=== PATIENT | male | born 1970 | race Two or more races ===

== ENCOUNTER 2024-06-21 19:15 | Inpatient (IN) | payer MEDICARE, OTHER ==
[~2024-06-21] VITALS: Ht 177.8 cm; Wt 83.9 kg
[2024-06-21 20:00] VITALS: BP 124/67; PULSE 103; RESP 20; TEMP 36.7516
[2024-06-21] MEDS ORDERED: ONDANSETRON HCL 4MG/2ML INJ IV PRN (20:45)
[2024-06-21] MEDS ORDERED: NALOXONE HCL 0.4MG/ML 1ML VIAL IV PRN (20:45)
[2024-06-21] MEDS ORDERED: DEXTROSE 50% WATER 50ML SYRINGE IV PRN (21:00)
[2024-06-21] MEDS: BLOOD SUGAR DIAGNOSTIC STRIP TEST SCH (21:52)
[2024-06-21 22:05] VITALS: BP 133/70; PULSE 102; RESP 19; TEMP 36.22512; O2SAT 72; O2SAT 95
[2024-06-21] MEDS: HYDROMORPHONE HCL/PF 1MG/ML INJ IV PRN (22:06)
[2024-06-21] MEDS: METOPROLOL TARTRATE 25MG TABLET PO SCH (22:07)
[2024-06-21] MEDS: GUAIFENESIN 600MG ER TABLET PO SCH (22:07)
[2024-06-21] MEDS: METHOCARBAMOL 500MG TABLET PO SCH (22:08)
[2024-06-21] MEDS: INSULIN LISPRO 100 UNITS/ML SUBCUT SCH (22:14)
[2024-06-21] MEDS: AZITHROMYCIN 500 MG TABLET PO SCH (22:56)
[2024-06-21] MEDS: SACUBITRIL/VALSARTAN 24MG/26MG TABLET PO SCH (22:56)
[2024-06-21] MEDS: CEFEPIME 1GM/50ML 50 ML IV SCH (22:57)
[2024-06-21] MEDS: HYDROCODONE/ACETAMINOPHEN 5/325MG TABLET PO PRN (23:12)
[2024-06-21] MEDS: CEFEPIME 2GM/50ML DUPLEX 50 ML IV SCH (23:32)
[2024-06-22] MEDS: GUAIFENESIN 200MG/10ML SUGAR FREE UDC PO PRN (01:22)
[2024-06-22 06:13] LABS: CHLORIDE 103 mEq/L (98-107); POTASSIUM 4.3 mEq/L (3.5-5.1); SODIUM 135 mEq/L (136-145)
[2024-06-22 06:15] LABS: CARBON DIOXIDE 23 mEq/L (21-32)
[2024-06-22 06:16] LABS: CALCIUM 8.3 mg/dL (8.7-10.4)
[2024-06-22 06:21] LABS: CREATININE 1.1 mg/dL (0.6-1.3); GLUCOSE 180 mg/dL (70-105); UREA NITROGEN BLOOD 23 mg/dL (9-23)
[2024-06-22 06:22] LABS: ALANINE AMINOTRANSFERASE 25 IU/L (10-49)
[2024-06-22 06:23] LABS: ALBUMIN 3.5 g/dL (3.2-4.8); ASPARTATE AMINOTRANSFERASE 63 IU/L (<34); BILIRUBIN TOTAL 0.9 mg/dL (0.1-1.0); PREALBUMIN 8.8 mg/dl (10.0-40.0); PROTEIN TOTAL 6.5 g/dL (6.0-8.3)
[2024-06-22 07:08] LABS: HEMATOCRIT. 25.7 % (42.0-52.0); MEAN CORPUSCULAR HEMOGLOBIN 35.6 pg (28.0-32.0); MEAN CORPUSCULAR HGB CONC 34.8 g/dL (31.0-37.0); MEAN CORPUSCULAR VOLUME 102.4 fL (80.0-94.0); RED BLOOD CELL COUNT 2.51 mill/uL (4.7-6.1); RED CELL DISTRIBUTION WIDTH 20.1 % (11.6-14.6)
[2024-06-22 08:00] VITALS: BP 112/62; PULSE 74; RESP 19; TEMP 36.114; O2SAT 96
[2024-06-22 08:16] LABS: DIFFERENTIAL COMMENT 1
[2024-06-22] MEDS ORDERED: CLOPIDOGREL 75MG TABLET PO SCH (09:00)
[2024-06-22] MEDS: SPIRONOLACTONE 25MG TABLET PO SCH (09:51)
[2024-06-22] MEDS: AMLODIPINE 5MG TABLET PO SCH (09:51)
[2024-06-22 10:20] LABS: PLATELET 161 x1000/uL (130-400)
[2024-06-22 10:24] LABS: ANISOCYTOSIS 2+; NUCLEATED RED BLOOD CELLS 11 /100 WBC; PLATELET ESTIMATE NORMAL; TARGET CELLS 1+
[2024-06-22] MEDS: VANCOMYCIN 1.5GM/250ML IV NR (12:00)
[2024-06-22] MEDS: HYDROCODONE/ACETAMINOPHEN 5/325MG TABLET PO PRN (14:05)
[2024-06-22] MEDS: CEFEPIME 2GM/50ML DUPLEX 50 ML IV SCH (16:28)
[2024-06-22 20:00] VITALS: BP 119/53; PULSE 78; RESP 18; TEMP 36.78072; O2SAT 94
[2024-06-22] MEDS ORDERED: VANCOMYCIN 1000MG/250ML IV SCH (23:00)
[2024-06-23 06:37] LABS: CARBON DIOXIDE 25 mEq/L (21-32); CHLORIDE 103 mEq/L (98-107); POTASSIUM 4.4 mEq/L (3.5-5.1); SODIUM 134 mEq/L (136-145)
[2024-06-23 06:38] LABS: CALCIUM 8.4 mg/dL (8.7-10.4)
[2024-06-23 06:42] LABS: IRON 28 ug/dL (65-175)
[2024-06-23 06:43] LABS: ALANINE AMINOTRANSFERASE 30 IU/L (10-49); GLUCOSE 218 mg/dL (70-105); PROTEIN TOTAL 6.4 g/dL (6.0-8.3); UREA NITROGEN BLOOD 18 mg/dL (9-23)
[2024-06-23 06:44] LABS: ALBUMIN 3.5 g/dL (3.2-4.8)
[2024-06-23 06:45] LABS: ASPARTATE AMINOTRANSFERASE 54 IU/L (<34); BILIRUBIN TOTAL 0.7 mg/dL (0.1-1.0); TOTAL IRON BINDING CAPACITY 385 ug/dl (250-425)
[2024-06-23 07:04] LABS: FERRITIN > 1650 ng/mL (22-322)
[2024-06-23 07:05] LABS: FOLIC ACID (FOLATE) SERUM > 20.00 ng/mL (>5.38)
[2024-06-23 07:06] LABS: VITAMIN B12 SERUM 313 pg/mL (211-911)
[2024-06-23 07:52] LABS: HEMATOCRIT. 25.5 % (42.0-52.0); HEMOGLOBIN. 8.9 g/dL (14.0-18.0); MEAN CORPUSCULAR HEMOGLOBIN 34.9 pg (28.0-32.0); MEAN CORPUSCULAR HGB CONC 34.8 g/dL (31.0-37.0); MEAN CORPUSCULAR VOLUME 100.3 fL (80.0-94.0); RED BLOOD CELL COUNT 2.54 mill/uL (4.7-6.1); RED CELL DISTRIBUTION WIDTH 20.7 % (11.6-14.6)
[2024-06-23 07:54] LABS: DIFFERENTIAL COMMENT 1
[2024-06-23 08:00] VITALS: BP 104/64; PULSE 64; TEMP 36.114
[2024-06-23 08:55] VITALS: BP 104/62; PULSE 64; RESP 18; TEMP 36.114; O2SAT 98
[2024-06-23 09:34] LABS: ANISOCYTOSIS 3+; NUCLEATED RED BLOOD CELLS 18 /100 WBC; PLATELET ESTIMATE NORMAL
[2024-06-23 09:35] LABS: PLATELET 177 x1000/uL (130-400); TARGET CELLS FEW
[2024-06-23] MEDS: HYDROMORPHONE HCL/PF 1MG/ML INJ SUBCUT PRN (12:32)
[2024-06-23] MEDS: CYANOCOBALAMIN 1000MCG/ML VIAL IM SCH (14:09)
[2024-06-23] MEDS: FERROUS SULFATE 325MG TABLET PO SCH (14:09)
[2024-06-23 15:44] VITALS: PULSE 64; RESP 16; O2SAT 98
[2024-06-23] MEDS: IPRATROPIUM/ALBUTEROL 0.5-3(2.5)MG/3ML NEB HHN PRN (15:44)
[2024-06-23] MEDS: FUROSEMIDE 40MG/4ML VIAL IVP NR (18:08)
[2024-06-23 20:00] VITALS: BP 132/68; PULSE 88; RESP 18; TEMP 36.6696; O2SAT 98
[2024-06-24 08:00] VITALS: BP 138/80; PULSE 94; RESP 18; TEMP 36.55848; O2SAT 94
[2024-06-24] MEDS: ASCORBIC ACID 500 MG TABLET PO SCH (10:39)
[2024-06-24 19:44] VITALS: BP 113/62; PULSE 90; RESP 20; TEMP 36.89184; O2SAT 99
[2024-06-24 22:03] LABS: HEMATOCRIT. 26.6 % (42.0-52.0); HEMOGLOBIN. 9.4 g/dL (14.0-18.0); MEAN CORPUSCULAR HEMOGLOBIN 34.1 pg (28.0-32.0); MEAN CORPUSCULAR HGB CONC 35.2 g/dL (31.0-37.0); MEAN CORPUSCULAR VOLUME 96.8 fL (80.0-94.0); MEAN PLATELET VOLUME 9.5 fl (7.4-10.4); PLATELET 271 x1000/uL (130-400); RED BLOOD CELL COUNT 2.75 mill/uL (4.7-6.1); RED CELL DISTRIBUTION WIDTH 21.7 % (11.6-14.6); WHITE BLOOD COUNT 10.8 x1000/uL (4.5-11.0)
[2024-06-24 22:12] LABS: DIFFERENTIAL COMMENT 1
[2024-06-24 22:28] LABS: CHLORIDE 105 mEq/L (98-107); POTASSIUM 4.6 mEq/L (3.5-5.1); SODIUM 134 mEq/L (136-145)
[2024-06-24 22:29] LABS: CALCIUM 9.1 mg/dL (8.7-10.4); CARBON DIOXIDE 22 mEq/L (21-32)
[2024-06-24 22:30] LABS: NUCLEATED RED BLOOD CELLS 15 /100 WBC; PLATELET ESTIMATE NORMAL
[2024-06-24 22:32] LABS: ANISOCYTOSIS 2+
[2024-06-24 22:34] LABS: CREATININE 1.1 mg/dL (0.6-1.3); GLUCOSE 162 mg/dL (70-105); UREA NITROGEN BLOOD 20 mg/dL (9-23)
[2024-06-25 00:25] VITALS: PULSE 88; RESP 18; O2SAT 92
[2024-06-25 08:00] VITALS: BP 129/74; PULSE 81; RESP 18; TEMP 36.1; O2SAT 95
[2024-06-25] MEDS: LACTULOSE 20G/30ML UDC PO PRN (13:40)
[2024-06-25] MEDS: DOCUSATE SODIUM 100MG CAPSULE PO PRN (13:41)
[2024-06-25] MEDS: ERGOCALCIFEROL 50000UNITS CAPSULE PO SCH (18:08)
[2024-06-25] MEDS: BENZONATATE 100MG CAPSULE PO SCH (18:08)
[2024-06-25 20:00] VITALS: BP 127/69; PULSE 88; RESP 17; TEMP 36.7; O2SAT 98
[2024-06-26] MEDS: ACETAMINOPHEN 325MG TABLET PO PRN (03:27)
[2024-06-26 08:00] VITALS: BP 144/73; PULSE 91; RESP 18; TEMP 36.2; O2SAT 100
[2024-06-26 18:23] VITALS: PULSE 116; RESP 20; O2SAT 97
[2024-06-26 20:00] VITALS: BP 115/56; PULSE 97; RESP 18; TEMP 37.1; O2SAT 96
[2024-06-27 08:00] VITALS: BP 116/57; PULSE 96; RESP 20; TEMP 36.5; O2SAT 90
[2024-06-27] MEDS: HYDROCODONE/ACETAMINOPHEN 10/325MG TABLET PO PRN (18:25)
[2024-06-27 20:00] VITALS: BP 126/71; PULSE 107; RESP 20; TEMP 36.6; O2SAT 99
[2024-06-28 08:00] VITALS: BP 99/50; PULSE 75; RESP 19; TEMP 36.6; O2SAT 100
[2024-06-28 20:00] VITALS: BP 115/64; PULSE 86; RESP 19; TEMP 36.4; O2SAT 97
[2024-06-29 08:00] VITALS: BP 96/56; PULSE 80; RESP 20; TEMP 36.1; O2SAT 96
[2024-06-29 20:00] VITALS: BP 119/68; PULSE 86; RESP 18; TEMP 36.4; O2SAT 97
[2024-06-30 06:59] VITALS: BP 90/38; PULSE 80; RESP 18; O2SAT 93
[2024-06-30 08:00] VITALS: BP 91/46; PULSE 77; RESP 20; TEMP 36.2; O2SAT 100
[2024-06-30 09:49] LABS: HEMATOCRIT. 28.1 % (42.0-52.0); HEMOGLOBIN. 9.5 g/dL (14.0-18.0); MEAN CORPUSCULAR HEMOGLOBIN 33.4 pg (28.0-32.0); MEAN CORPUSCULAR HGB CONC 33.7 g/dL (31.0-37.0); MEAN CORPUSCULAR VOLUME 99.3 fL (80.0-94.0); MEAN PLATELET VOLUME 8.8 fl (7.4-10.4); PLATELET 362 x1000/uL (130-400); RED BLOOD CELL COUNT 2.83 mill/uL (4.7-6.1); RED CELL DISTRIBUTION WIDTH 23.2 % (11.6-14.6)
[2024-06-30 10:24] LABS: CHLORIDE 105 mEq/L (98-107); POTASSIUM 5.2 mEq/L (3.5-5.1); SODIUM 136 mEq/L (136-145)
[2024-06-30 10:25] LABS: CALCIUM 9.5 mg/dL (8.7-10.4); CARBON DIOXIDE 23 mEq/L (21-32)
[2024-06-30 10:30] LABS: CREATININE 1.2 mg/dL (0.6-1.3); GLUCOSE 153 mg/dL (70-105); UREA NITROGEN BLOOD 23 mg/dL (9-23)
[2024-06-30 10:31] LABS: ALBUMIN 3.8 g/dL (3.2-4.8)
[2024-06-30 10:32] LABS: ALANINE AMINOTRANSFERASE 32 IU/L (10-49); ASPARTATE AMINOTRANSFERASE 33 IU/L (<34); BILIRUBIN TOTAL 0.9 mg/dL (0.1-1.0); PROTEIN TOTAL 7.6 g/dL (6.0-8.3)
[2024-06-30 10:47] LABS: DIFFERENTIAL COMMENT 1
[2024-06-30] MEDS: SODIUM ZIRCONIUM CYCLOSILICATE 10GM/PACKET PO NR (12:35)
[2024-06-30 16:20] LABS: ANISOCYTOSIS 3+; PLATELET ESTIMATE NORMAL
[2024-06-30 16:21] LABS: TARGET CELLS 1+
[2024-06-30 20:00] VITALS: BP 102/58; PULSE 89; RESP 18; TEMP 36.9; O2SAT 99
[2024-06-30] MEDS: METOPROLOL TARTRATE 25MG TABLET PO SCH (21:00)
[2024-07-01 08:00] VITALS: BP 113/65; PULSE 75; RESP 19; TEMP 35.9; O2SAT 96
[2024-07-01] MEDS ORDERED: BENZONATATE 100MG CAPSULE PO PRN (10:00)
[2024-07-01 18:48] LABS: HEMATOCRIT. 24.5 % (42.0-52.0); HEMOGLOBIN. 8.6 g/dL (14.0-18.0); MEAN CORPUSCULAR HGB CONC 35.2 g/dL (31.0-37.0); MEAN CORPUSCULAR VOLUME 96.5 fL (80.0-94.0); MEAN PLATELET VOLUME 8.8 fl (7.4-10.4); PLATELET 369 x1000/uL (130-400); RED BLOOD CELL COUNT 2.54 mill/uL (4.7-6.1); RED CELL DISTRIBUTION WIDTH 22.6 % (11.6-14.6); WHITE BLOOD COUNT 7.6 x1000/uL (4.5-11.0)
[2024-07-01 18:51] LABS: DIFFERENTIAL COMMENT 1
[2024-07-01 19:17] LABS: CALCIUM 9.4 mg/dL (8.7-10.4); CHLORIDE 104 mEq/L (98-107); SODIUM 135 mEq/L (136-145)
[2024-07-01 19:18] LABS: CARBON DIOXIDE 23 mEq/L (21-32)
[2024-07-01 19:23] LABS: CREATININE 1.1 mg/dL (0.6-1.3); GLUCOSE 151 mg/dL (70-105); UREA NITROGEN BLOOD 20 mg/dL (9-23)
[2024-07-01 19:27] LABS: ANISOCYTOSIS 2+; NUCLEATED RED BLOOD CELLS 8 /100 WBC; PLATELET ESTIMATE NORMAL
[2024-07-01 20:18] VITALS: BP 118/73; PULSE 71; RESP 19; TEMP 36.7; O2SAT 98
[2024-07-02 06:36] LABS: CARBON DIOXIDE 26 mEq/L (21-32); CHLORIDE 103 mEq/L (98-107); HEMATOCRIT. 25.7 % (42.0-52.0); HEMOGLOBIN. 8.8 g/dL (14.0-18.0); MEAN CORPUSCULAR HEMOGLOBIN 32.6 pg (28.0-32.0); MEAN CORPUSCULAR VOLUME 95.9 fL (80.0-94.0); POTASSIUM 4.1 mEq/L (3.5-5.1); RED BLOOD CELL COUNT 2.68 mill/uL (4.7-6.1); RED CELL DISTRIBUTION WIDTH 22.1 % (11.6-14.6); SODIUM 136 mEq/L (136-145)
[2024-07-02 06:37] LABS: CALCIUM 9.3 mg/dL (8.7-10.4)
[2024-07-02 06:42] LABS: CREATININE 1.1 mg/dL (0.6-1.3); GLUCOSE 165 mg/dL (70-105); UREA NITROGEN BLOOD 18 mg/dL (9-23)
[2024-07-02 07:22] LABS: DIFFERENTIAL COMMENT 1
[2024-07-02] MEDS: HYDROCODONE/ACETAMINOPHEN 5/325MG TABLET PO PRN (07:58)
[2024-07-02 08:00] VITALS: BP 101/61; PULSE 82; RESP 18; TEMP 36.2; O2SAT 100
[2024-07-02 20:00] VITALS: BP 107/58; PULSE 74; RESP 18; TEMP 36.4; O2SAT 96
[2024-07-02 21:34] LABS: MEAN PLATELET VOLUME 8.7 fl (7.4-10.4); PLATELET 382 x1000/uL (130-400)
[2024-07-02 21:37] LABS: ANISOCYTOSIS 1+; NUCLEATED RED BLOOD CELLS 18 /100 WBC; PLATELET ESTIMATE NORMAL
[2024-07-02] MEDS: GABAPENTIN 300MG CAPSULE PO SCH (22:47)
[2024-07-03 08:00] VITALS: BP 83/40; PULSE 65; RESP 20; TEMP 36.8; O2SAT 96
[2024-07-03 12:59] VITALS: BP 109/67; PULSE 92; RESP 20; TEMP 36.8; O2SAT 97
[2024-07-03 20:00] VITALS: BP 96/49; PULSE 88; RESP 19; TEMP 36.7; O2SAT 95
[2024-07-04 08:00] VITALS: BP 90/45; PULSE 81; RESP 20; TEMP 36.4; O2SAT 99
[2024-07-04] MEDS ORDERED: NALOXONE HCL 0.4MG/ML VIAL IV PRN (14:15)
[2024-07-04 20:17] VITALS: BP 124/55; PULSE 74; RESP 19; TEMP 36.5; O2SAT 98
[2024-07-05] MEDS: GUAIFENESIN-DM 200MG-20MG/10ML UDC PO PRN (02:46)
[2024-07-05] MEDS: HYDROCODONE/ACETAMINOPHEN 10/325MG TABLET PO PRN (05:45)
[2024-07-05 07:42] LABS: CHLORIDE 106 mEq/L (98-107); POTASSIUM 4.2 mEq/L (3.5-5.1); SODIUM 138 mEq/L (136-145)
[2024-07-05 07:43] LABS: CALCIUM 9.4 mg/dL (8.7-10.4); CARBON DIOXIDE 23 mEq/L (21-32)
[2024-07-05 07:48] LABS: BASOPHILS % 0.7 % (0.0-2.0); CREATININE 1.2 mg/dL (0.6-1.3); EOSINOPHILS % 3.3 % (0.0-5.0); GLUCOSE 179 mg/dL (70-105); HEMATOCRIT. 24.4 % (42.0-52.0); HEMOGLOBIN. 8.3 g/dL (14.0-18.0); LYMPHOCYTES % 9.2 % (20.0-50.0); MEAN CORPUSCULAR HEMOGLOBIN 32.4 pg (28.0-32.0); MEAN CORPUSCULAR HGB CONC 34.1 g/dL (31.0-37.0); MEAN CORPUSCULAR VOLUME 95.1 fL (80.0-94.0); MONOCYTES % 17.7 % (2.0-8.0); NEUTROPHILS % 69.1 % (40.0-76.0); RED BLOOD CELL COUNT 2.57 mill/uL (4.7-6.1); RED CELL DISTRIBUTION WIDTH 22.3 % (11.6-14.6); UREA NITROGEN BLOOD 17 mg/dL (9-23)
[2024-07-05 07:50] LABS: ALANINE AMINOTRANSFERASE 23 IU/L (10-49); ALBUMIN 3.5 g/dL (3.2-4.8); ASPARTATE AMINOTRANSFERASE 24 IU/L (<34); BILIRUBIN TOTAL 0.8 mg/dL (0.1-1.0); PROTEIN TOTAL 7.6 g/dL (6.0-8.3)
[2024-07-05 09:10] LABS: DIFFERENTIAL COMMENT 1
[2024-07-05] MEDS ORDERED: NALOXONE HCL 0.4MG/ML VIAL IV PRN (15:00)
[2024-07-05] MEDS ORDERED: OXYCODONE HCL 5MG TABLET PO PRN (15:00)
[2024-07-05 20:00] VITALS: BP 105/72; PULSE 85; RESP 19; TEMP 36.3; O2SAT 98
[2024-07-06 08:00] VITALS: BP 96/50; PULSE 66; RESP 20; TEMP 36.3; O2SAT 96
[2024-07-06 16:36] LABS: MEAN PLATELET VOLUME 8.9 fl (7.4-10.4); PLATELET 361 x1000/uL (130-400)
[2024-07-06 20:00] VITALS: BP 130/74; PULSE 111; RESP 18; TEMP 37; O2SAT 97
[2024-07-07 06:39] LABS: CARBON DIOXIDE 26 mEq/L (21-32); CHLORIDE 105 mEq/L (98-107); POTASSIUM 4.1 mEq/L (3.5-5.1); SODIUM 139 mEq/L (136-145)
[2024-07-07 06:41] LABS: CALCIUM 9.1 mg/dL (8.7-10.4)
[2024-07-07 06:45] LABS: GLUCOSE 143 mg/dL (70-105); UREA NITROGEN BLOOD 14 mg/dL (9-23)
[2024-07-07 06:51] LABS: CREATININE 1.2 mg/dL (0.6-1.3)
[2024-07-07 08:00] VITALS: BP 97/53; PULSE 62; RESP 20; TEMP 36.2; O2SAT 97
[2024-07-07 20:00] VITALS: BP 108/62; PULSE 81; RESP 19; TEMP 37.2; O2SAT 96
[2024-07-08 20:00] VITALS: BP 97/57; PULSE 88; RESP 18; TEMP 36.2; O2SAT 98
[2024-07-08] MEDS: FAMOTIDINE 20MG TABLET PO SCH (20:57)
[2024-07-09 08:00] VITALS: BP 113/68; PULSE 84; RESP 20; TEMP 36.2; O2SAT 97
[2024-07-09] MEDS: LACTOBACILLUS GG CAPSULE PO SCH (09:29)
[2024-07-09 20:00] VITALS: BP 110/64; PULSE 76; RESP 18; TEMP 36.8; O2SAT 96
[2024-07-10 08:00] VITALS: BP 111/60; PULSE 56; RESP 18; TEMP 36.2; O2SAT 97
[2024-07-10] MEDS: OXYCODONE HCL 5MG TABLET PO PRN ×2 (13:43→20:40)
[2024-07-10 20:00] VITALS: BP 127/60; PULSE 70; RESP 18; TEMP 36.3; O2SAT 98
[2024-07-11 08:00] VITALS: BP 97/50; PULSE 67; RESP 20; TEMP 36.3; O2SAT 96
[2024-07-11] MEDS ORDERED: HYDROCODONE/ACETAMINOPHEN 10/325MG TABLET PO PRN (14:30)
[2024-07-11 19:40] VITALS: BP 133/58; PULSE 55; RESP 17; TEMP 36.3; O2SAT 97
[2024-07-12 08:00] VITALS: BP 114/54; PULSE 57; RESP 19; TEMP 36.6; O2SAT 97
[2024-07-12 11:49] LABS: HEMATOCRIT. 26.5 % (42.0-52.0); MEAN CORPUSCULAR HEMOGLOBIN 32.2 pg (28.0-32.0); MEAN CORPUSCULAR VOLUME 94.8 fL (80.0-94.0); MEAN PLATELET VOLUME 8.6 fl (7.4-10.4); PLATELET 424 x1000/uL (130-400); WHITE BLOOD COUNT 6.4 x1000/uL (4.5-11.0)
[2024-07-12 11:53] LABS: DIFFERENTIAL COMMENT 1
[2024-07-12 11:54] LABS: CHLORIDE 106 mEq/L (98-107); POTASSIUM 3.8 mEq/L (3.5-5.1); SODIUM 143 mEq/L (136-145)
[2024-07-12 11:55] LABS: CARBON DIOXIDE 29 mEq/L (21-32)
[2024-07-12 11:56] LABS: CALCIUM 9.3 mg/dL (8.7-10.4)
[2024-07-12 12:00] LABS: CREATININE 1.1 mg/dL (0.6-1.3); GLUCOSE 132 mg/dL (70-105); UREA NITROGEN BLOOD 10 mg/dL (9-23)
[2024-07-12] MEDS ORDERED: TOPUD PO (12:05)
[2024-07-12] MEDS ORDERED: LACT10SO7 PO (12:05)
[2024-07-12] MEDS ORDERED: OXYC-485 PO (12:05)
[2024-07-12] MEDS ORDERED: SACU1TAB PO (12:05)
[2024-07-12] MEDS ORDERED: GABA-1180 PO (12:05)
[2024-07-12] MEDS ORDERED: METH-773 PO (12:05)
[2024-07-12] MEDS ORDERED: METO25TA6 PO (12:05)
[2024-07-12] MEDS ORDERED: LACT1CAP77 PO (12:05)
[2024-07-12] MEDS ORDERED: DOCU-422 PO (12:05)
[2024-07-12] MEDS ORDERED: FAMO20TA8 PO (12:05)
[2024-07-12] MEDS ORDERED: HYDR-4009 PO (12:05)
[2024-07-12] MEDS ORDERED: ASCO500T20 PO (12:05)
[2024-07-12] MEDS ORDERED: FERR-63 PO (12:05)
[2024-07-12] MEDS ORDERED: INSLIS SUBCUT (12:05)
[2024-07-12 14:24] VITALS: BP 114/67; PULSE 82; TEMP 99; O2SAT 96
[2024-07-13 16:51] LABS: ANISOCYTOSIS 2+; GIANT PLATELETS 1+; PLATELET ESTIMATE NORMAL
== END 2024-07-12 16:45 | DRG 551 ==
PROVIDERS: ADMIT Physical Medicine & Rehabilitation Spinal Cord Injury Medicine; ATTEND Family Medicine Adult Medicine
DX: M48.02 Spinal stenosis, cervical region (principal); A41.9 Sepsis, unspecified organism; G82.50 Quadriplegia, unspecified; I69.354 Hemiplegia and hemiparesis following cerebral infarction affecting left non-dominant side; N17.9 Acute kidney failure, unspecified; I13.0 Hypertensive heart and chronic kidney disease with heart failure and stage 1 through stage 4 chronic kidney disease, or unspecified chronic kidney disease; I42.9 Cardiomyopathy, unspecified; I82.811 Embolism and thrombosis of superficial veins of right lower extremity; M47.12 Other spondylosis with myelopathy, cervical region; F01.53 Vascular dementia, unspecified severity, with mood disturbance; I50.22 Chronic systolic (congestive) heart failure; D64.9 Anemia, unspecified; R26.2 Difficulty in walking, not elsewhere classified; R53.1 Weakness; D57.1 Sickle-cell disease without crisis; E55.9 Vitamin D deficiency, unspecified; E87.5 Hyperkalemia; R26.89 Other abnormalities of gait and mobility; G31.9 Degenerative disease of nervous system, unspecified; D72.829 Elevated white blood cell count, unspecified; R20.2 Paresthesia of skin; R05.9 Cough, unspecified; R29.6 Repeated falls; F06.34 Mood disorder due to known physiological condition with mixed features; R40.0 Somnolence; R20.0 Anesthesia of skin; I95.9 Hypotension, unspecified; E11.22 Type 2 diabetes mellitus with diabetic chronic kidney disease; N18.9 Chronic kidney disease, unspecified; M50.30 Other cervical disc degeneration, unspecified cervical region; Z96.642 Presence of left artificial hip joint; R53.81 Other malaise; Z79.02 Long term (current) use of antithrombotics/antiplatelets; Z82.49 Family history of ischemic heart disease and other diseases of the circulatory system; Z83.3 Family history of diabetes mellitus; Z88.0 Allergy status to penicillin; Z91.81 History of falling; Z86.718 Personal history of other venous thrombosis and embolism; Z79.899 Other long term (current) drug therapy
CPT/HCPCS: 36415; 71045; 80048; 80053; 82306; 82607; 82728; 82746; 82962; 83036; 83540; 83550; 83735; 84134; 84145; 84443; 85025; 92523; 92610; 93005; 93970; 94640; 94664; 97110; 97112; 97116; 97150; 97162; 97166; 97530; 97535; 97542; A4606; C1893; J0692; J1171; J1815; J1940; J3370; J3420